=== PATIENT | male | born 1985 | race Two or more races ===

== ENCOUNTER 2016-08-11 18:37 | Emergency (ER) | payer OTHER ==
[2016-08-11] MEDS ORDERED: IBUPROFEN 600 MG TABLET (FP) PO ONE (18:45)
--- NOTE | 2016-08-11 18:45 | PDOC ---
Rapid Medical Evaluation Chief Complaint: Ear Problem Time Seen by Provider: 08/11/16 18:43 Medical Evaluation: Allergies Allergy/AdvReac Type Severity Reaction Status Date / Time No Known Allergies Allergy Verified 08/11/16 18:43 08/11/16 18:44 I have performed a brief in-person evaluation of this patient. The patient presents with a chief complaint of:left earache for 3 days Pertinent physical exam findings:none I have ordered the following:motrin 800mg The patient will proceed to the ED for further evaluation.
[2016-08-11 18:46] VITALS: BP 144/58; PULSE 66; TEMP 98.8; BMI 25.7
[2016-08-11] MEDS ORDERED: IBUPROFEN 400 MG TABLET (FP) PO ONE (19:03)
[2016-08-11] MEDS ORDERED: AMOXICILLIN 250 MG CAPSULE ONE (19:53)
[2016-08-11] MEDS ORDERED: AMOXICILLIN 500 MG CAPSULE (FP) PO ONE (19:53)
--- NOTE | 2016-08-11 19:56 | PDOC ---
History of Present Illness - General Chief Complaint: Ear Problem Stated Complaint: EAR PROBLEM Time Seen by Provider: 08/11/16 18:43 History Source: Patient Exam Limitations: No Limitations - History of Present Illness Initial Comments: 08/11/16 19:53 Complaints of severe left ear pain 24 hours. 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 No drainage from the ear, no recent trauma. Timing/Duration: unsure Past History - Past Medical History Allergies/Adverse Reactions: Allergies Allergy/AdvReac Type Severity Reaction Status Date / Time No Known Allergies Allergy Verified 08/11/16 18:43 Home Medications: Ambulatory Orders Amoxicillin - [Amoxicillin 500mg Capsule -] 500 mg PO TID #21 capsule 08/11/16 Other medical history: NONE - Immunization History Immunization Up to Date: Yes - Psycho/Social/Smoking Cessation Hx Anxiety: No Suicidal Ideation: No Smoking History: Never smoked Have you smoked in the past 12 months: No Information on smoking cessation initiated: No Hx Alcohol Use: No Drug/Substance Use Hx: No Substance Use Type: None Review of Systems - Review of Systems Able to Perform ROS?: Yes Is the patient limited Spanish proficient: Yes Constitutional: Yes: Symptoms Reported, See HPI, Chills, Fever, Malaise HEENTM: Yes: Symptoms Reported, See HPI, Ear Pain, Nose Congestion. No: Ear Discharge Respiratory: Yes: See HPI. No: Symptoms reported, Cough Musculoskeletal: No: Symptoms Reported Neurological: Yes: See HPI, Headache All Other Systems: Reviewed and Negative *Physical Exam - Vital Signs Last Vital Signs Temp Pulse Resp BP Pulse Ox 98.8 F 66 18 144/58 100 08/11/16 18:43 08/11/16 18:43 08/11/16 18:43 08/11/16 18:43 08/11/16 18:43 - Physical Exam General Appearance: Yes: Nourished, Appropriately Dressed, Apparent Distress, Mild Distress, Moderate Distress HEENT: positive: TINY, Rhinorrhea, Sinus Tenderness, Other (bulging, red, dull tympanic membrane to left ear, but intact. Right ear is congested but landmarks easily visualized.). negative: Normal ENT Inspection Neck: positive: Supple. negative: Lymphadenopathy (R), Lymphadenopathy (L) Respiratory/Chest: positive: Lungs Clear, Normal Breath Sounds Cardiovascular: positive: Regular Rate Gastrointestinal/Abdominal: positive: Soft Extremity: positive: Normal Capillary Refill Integumentary: positive: Dry, Warm, Pale Neurologic: positive: planning aide II-XII NML intact, Fully Oriented, Alert, Normal Mood/ Affect, Normal Response, Motor Strength 07/11 ED Treatment Course - Medications Given in the ED: ED Medications Discontinued Medications Generic Name Dose Route Start Last Admin Trade Name Kami PRN Reason Stop Dose Admin Ibuprofen 800 mg 08/11/16 18:45 08/11/16 19:01 Motrin - PO 08/11/16 18:46 800 mg ONCE ONE Administration Medical Decision Making - Medical Decision Making 08/11/16 19:56 Otitis media, we'll treat with amoxicillin *DC/Admit/Observation/Transfer Diagnosis at time of Disposition: Otitis media of left ear Qualifiers: Otitis media type: other nonsuppurative Chronicity: acute Recurrence: not specified as recurrent Qualified Code(s): H65.192 - Other acute nonsuppurative otitis media, left ear - Discharge Dispostion Disposition: HOME Condition at time of disposition: Stable Admit: No - Prescriptions Prescriptions: Amoxicillin - [Amoxicillin 500mg Capsule -] 500 mg PO TID #21 capsule - Patient Instructions Printed Discharge Instructions: Middle Ear Infection Additional Instructions: Rest, lots of fluids; water, teas, soups Saltwater girls and steamy showers Hot wet soaks to ear/hot packs may help relieve some pain Continue ibuprofen or Tylenol for pain and fevers Complete all antibiotics as directed followup with private physician / ENT doctor in 2-3 days - Post Discharge Activity Work/School Note: Back to Work
== END 2016-08-11 19:56 | disposition home or self-care (01) ==
LOC: JERFT 18:37
DX: H65.192 Other acute nonsuppurative otitis media, left ear (principal)
CPT/HCPCS: 99281-25

== ENCOUNTER 2017-11-27 01:36 | Emergency (ER) | payer OTHER ==
[2017-11-27 01:56] VITALS: BP 132/70; PULSE 68; TEMP 98.5; BMI 26.6
--- NOTE | 2017-11-27 02:13 | PDOC ---
History of Present Illness - General Chief Complaint: Urinary Problem Stated Complaint: BACK PAIN Time Seen by Provider: 11/27/17 02:07 History Source: Patient - History of Present Illness Initial Comments: 11/27/17 02:51 32 year old male with low back pain and dysuria for 1 day. reports that patient is sexually active with girlfriend unsure of any STD exposure. denies fever, NVD , abdominal pain, flank pain. last Bm at 5 pm 11/27/17 03:31 Past History - Past Medical History Allergies/Adverse Reactions: Allergies Allergy/AdvReac Type Severity Reaction Status Date / Time No Known Allergies Allergy Verified 08/11/16 18:43 Home Medications: Ambulatory Orders Amoxicillin - [Amoxicillin 500mg Capsule -] 500 mg PO TID #21 capsule 08/11/16 Ibuprofen 600 mg PO QID PRN #20 tablet 11/27/17 - Immunization History Immunization Up to Date: Yes - Suicide/Smoking/Psychosocial Hx Smoking History: Never smoked Have you smoked in the past 12 months: No Information on smoking cessation initiated: No Hx Alcohol Use: No Drug/Substance Use Hx: No Substance Use Type: None Review of Systems - Review of Systems Able to Perform ROS?: Yes Is the patient limited Citizen [place] proficient: No Constitutional: No: Symptoms Reported, See HPI, Chills, Diaphoresis, Fever, Loss of Appetite, Malaise, Night Sweats, Weakness, Weight Stable, Unintentional Wgt. Loss, Unexplained wgt Loss, Other : Yes: Dysuria. No: Symptoms Reported, See HPI, Burning, Discharge, Frequency , Flank Pain, Hematuria, Incontinence, Pain, Urgency, Testicular Mass, Testicular Swelling, Lesions, Testicular Pain, Other Musculoskeletal: Yes: Back Pain *Physical Exam - Vital Signs Last Vital Signs Temp Pulse Resp BP Pulse Ox 98.5 F 68 18 132/70 100 11/27/17 01:52 11/27/17 01:52 11/27/17 01:52 11/27/17 01:52 11/27/17 01:52 - Physical Exam General Appearance: Yes: Appropriately Dressed Respiratory/Chest: positive: Lungs Clear, Normal Breath Sounds Cardiovascular: positive: Regular Rhythm, Regular Rate Gastrointestinal/Abdominal: positive: Normal Bowel Sounds, Soft. negative: Tender Male Genitalia: positive: normal genitalia, other (no penile discharge). negative: testicular tenderness, testicular mass Musculoskeletal: positive: Normal Inspection, Other (low back pain lateral on palpation). negative: CVA Tenderness Extremity: positive: Normal Capillary Refill, Normal Inspection, Normal Range of Motion Integumentary: positive: Normal Color, Dry, Warm Neurologic: positive: Fully Oriented, Alert Progress Note - Progress Note Progress Note: Foreskin inflammation; Dysuria P: UA urine culture outpatient Urology follow up Medical Decision Making - Medical Decision Making 11/27/17 03:41 mild irritation to glans pubis . patient is uncircumcised patient is able to retract foreskin back. there is nosuprapubic or testicular pain. will give referral to urology 11/27/17 03:45 11/27/17 03:48 back pain has improved *DC/Admit/Observation/Transfer Diagnosis at time of Disposition: Presence of smegma in male patient, Foreskin inflammation Low back pain Qualifiers: Chronicity: acute Back pain laterality: midline Sciatica presence: without sciatica Qualified Code(s): M54.5 - Low back pain - Discharge Dispostion Disposition: HOME - Prescriptions Prescriptions: Ibuprofen 600 mg PO QID PRN #20 tablet PRN Reason: Back Pain - Referrals Referrals: Ramona Azevedo MD [Primary Care Provider] - Trey Bryant MD [Staff Physician] - 2 Days - Patient Instructions Printed Discharge Instructions: DI for Balanitis Additional Instructions: keep skin clean and dry. for low back pain you may take ibuprofen every 6 hours as needed for pain - Post Discharge Activity Forms/Work/School Notes: Back to Work
[2017-11-27] MEDS ORDERED: IBUPROFEN 400 MG TABLET (FP) PO ONE ×2 (02:38→02:57)
[2017-11-27 03:11] LABS: URINE APPEARANCE CLEAR; URINE BILIRUBIN NEGATIVE (<2.0 mg/dL); URINE COLOR LTYELLOW; URINE GLUCOSE (UA) NEGATIVE (NEGATIVE); URINE KETONE NEGATIVE (NEGATIVE); URINE LEUK ESTERASE NEGATIVE (NEGATIVE); URINE NITRITE NEGATIVE (NEGATIVE); URINE PROTEIN NEGATIVE (NEGATIVE); URINE UROBILINOGEN NEGATIVE mg/dL (0.2-1.0)
== END 2017-11-27 04:02 | disposition home or self-care (01) ==
LOC: JER 01:36
DX: N48.29 Other inflammatory disorders of penis (principal); M54.5 Low back pain
CPT/HCPCS: 81003; 87086; 99281-25

== ENCOUNTER 2020-10-29 16:00 | Emergency (ER) | payer OTHER ==
[2020-10-29 16:16] VITALS: BP 133/80; PULSE 72; TEMP 97.5; BMI 25.8
[2020-10-29] MEDS ORDERED: KETOROLAC TROMETHAMINE 30 MG/1 ML VIAL IVPUSH ONE (17:16)
[2020-10-29] MEDS ORDERED: SODIUM CHLORIDE 0.9% 500 ML INFUS.BAG IV ONE (17:16)
[2020-10-29] MEDS ORDERED: KETOROLAC TROMETHAMINE 30 MG/1 ML VIAL ONE (17:32)
[2020-10-29 17:49] LABS: BASO % 0.4 % (0-2.0); HEMATOCRIT 47.1 % (35.4-49); HEMOGLOBIN 16.1 GM/dL (11.7-16.9); LYMPH % 24.4 % (8-40); MCH 28.5 pg (25.7-33.7); MCHC 34.1 g/dl (32.0-35.9); MEAN CELL VOLUME 83.6 fl (80-96); MEAN PLT VOLUME 8.3 fl (7.5-11.1); MONO % 6.8 % (3.8-10.2); NEUT % 67.4 % (42.8-82.8); PLATELET COUNT 254 10^3/uL (134-434); RBC 5.64 M/mm3 (4.00-5.60); RDW 13.5 % (11.9-15.9); WHITE BLOOD COUNT 6.5 K/mm3 (4.0-10.0)
[2020-10-29 17:55] LABS: PH,URINE 5.5 (5.0-8.0); URINE APPEARANCE CLEAR; URINE BILIRUBIN NEGATIVE (NEGATIVE); URINE COLOR YELLOW; URINE GLUCOSE (UA) NEGATIVE (NEGATIVE); URINE KETONE NEGATIVE (NEGATIVE); URINE LEUK ESTERASE NEGATIVE (NEGATIVE); URINE NITRITE NEGATIVE (NEGATIVE); URINE PROTEIN NEGATIVE (NEGATIVE); URINE UROBILINOGEN 0.2 mg/dL (0.2-1.0)
[2020-10-29 18:08] LABS: CALCIUM 9.5 mg/dL (8.5-10.1)
[2020-10-29 18:09] LABS: ALBUMIN 4.2 g/dl (3.4-5.0); BLOOD UREA NITROGEN 14.9 mg/dL (7-18)
[2020-10-29 18:13] LABS: BILIRUBIN,TOTAL 0.6 mg/dL (0.2-1); TOT PROT 8.5 g/dl (6.4-8.2)
== END 2020-10-29 21:57 | disposition home or self-care (01) ==
LOC: JERFT 16:00 → JER 16:00 → JERFT 21:57
PROC: 3E033GC Introduction of Other Therapeutic Substance into Peripheral Vein, Percutaneous Approach (ICD-10-PCS; principal; 2020-10-29)
DX: K57.90 Diverticulosis of intestine, part unspecified, without perforation or abscess without bleeding (principal)
CPT/HCPCS: 36415; 74177-TC; 80053; 81003; 83690; 85025; 99285-25; Q9967

== ENCOUNTER 2022-07-23 23:01 | Emergency (ER) | payer OTHER ==
[2022-07-23 23:18] VITALS: BP 133/78; PULSE 65; RESP 18; TEMP 97.9; BMI 25.0
[2022-07-23 23:40] LABS: PH,URINE 5.5 (5.0-8.0); URINE APPEARANCE CLEAR; URINE BILIRUBIN NEGATIVE (NEGATIVE); URINE COLOR YELLOW; URINE GLUCOSE (UA) NEGATIVE (NEGATIVE); URINE KETONE NEGATIVE (NEGATIVE); URINE LEUK ESTERASE NEGATIVE (NEGATIVE); URINE NITRITE NEGATIVE (NEGATIVE); URINE PROTEIN NEGATIVE (NEGATIVE); URINE UROBILINOGEN 0.2 mg/dL (0.2-1.0)
[2022-07-24] MEDS ORDERED: DOXYCYCLINE HYCLATE 100 MG CAPSULE PO ONE ×2 (00:22→00:23)
[2022-07-24 08:50] LABS: HCG,QUALITATIVE URINE Negative
== END 2022-07-24 01:03 | disposition home or self-care (01) ==
LOC: JER 23:01
DX: R30.0 Dysuria (principal); R30.9 Painful micturition, unspecified; N34.2 Other urethritis
CPT/HCPCS: 36415; 81003; 84703; 87086; 87491; 87591; 99284-25